=== PATIENT | male | born 1935 | race Caucasian/White ===

== ENCOUNTER 2018-03-20 12:28 | Inpatient (IN) ==
[2018-03-20] MEDS ORDERED: 0.9 % Sodium Chloride 1,000 ML IVC ONE (12:35)
[2018-03-20] MEDS ORDERED: Pantoprazole 40 MG VIAL IVP ONE (12:35)
--- NOTE | 2018-03-20 12:38 | Emergency Department Note ---
Disposition Clinical Impression: GI bleed Qualifiers: GI bleed type/associated pathology: unspecified gastrointestinal hemorrhage type Qualified Code(s): K92.2 - Gastrointestinal hemorrhage, unspecified Hematemesis Qualifiers: Nausea presence: unspecified Qualified Code(s): K92.0 - Hematemesis Syncope Qualifiers: Syncope type: unspecified Qualified Code(s): R55 - Syncope and collapse Disposition: Admitted As Inpatient Condition: Fair General Adult HPI - General Stated complaint: syncope Time Seen by Provider: 03/20/18 12:29 - Related Data Home Medications Medication Instructions Recorded Confirmed Carvedilol Phosphate [Coreg Cr] 20 mg PO DAILY 03/20/18 03/20/18 Finasteride [Proscar] 5 mg PO DAILY 03/20/18 03/20/18 Iron 18 mg PO DAILY 03/20/18 03/20/18 Levocetirizine 5 mg PO DAILY 03/20/18 03/20/18 Lisinopril [Zestril] 40 mg PO DAILY 03/20/18 03/20/18 levoFLOXacin [Levofloxacin] 500 mg PO DAILY 03/20/18 03/20/18 metFORMIN [Glucophage] 500 mg PO BIDWM 03/20/18 03/20/18 Allergies Allergy/AdvReac Type Severity Reaction Status Date / Time No Known Allergies Allergy Verified 03/20/18 12:56 Course Vital Signs Temperature 97.6 F 03/20/18 12:56 Pulse Rate 70 03/20/18 12:56 Respiratory Rate 15 03/20/18 12:56 Blood Pressure 135/75 03/20/18 12:56 O2 Sat by Pulse Oximetry 98 03/20/18 12:56 Temperature 97.7 F 03/20/18 19:04 Pulse Rate 74 03/20/18 19:04 Respiratory Rate 16 03/20/18 19:04 Blood Pressure 175/80 03/20/18 19:04 O2 Sat by Pulse Oximetry 97 03/20/18 19:04 Oxygen Delivery Oxygen Delivery Room Air Medical Decision Making - Lab Data Result diagrams: 03/20/18 18:23 03/20/18 12:55 Lab Results 03/20/18 03/20/18 03/20/18 Range/Units 12:55 12:55 12:55 WBC 10.5 (4.3-11.1) K/mcL RBC 3.24 L (4.19-5.50) M/mcL Hgb 11.4 L (12.9-16.9) g/dL Hct 33.2 L (37.5-50.1) % MCV 102.5 H (83.0-100.0) fL MCH 35.2 H (28.0-33.3) pg MCHC 34.3 (31.6-35.5) g/dL RDW 14.9 H (11.5-14.5) % Plt Count 228 (140-400) K/mcL MPV 11.2 (9.4-12.4) fL Immature Gran % 4.5 H (0-4) % Seg Neutrophils % 58.8 % Lymphocytes % 20.2 % Monocytes % 12.1 % Eosinophils % 3.6 % Basophils % 0.8 % Neutrophils # 6.2 (1.6-8.9) K/mcL Lymphocytes # 2.1 (0.6-4.6) K/mcL Monocytes # 1.3 (0.0-1.3) K/mcL Eosinophils # 0.4 (0.0-0.6) K/mcL Basophils # 0.1 (0.0-0.2) K/mcL Nucleated RBCs/100 WBC 0.6 H (0) /100 WBC PT 13.2 H (9.4-12.1) Seconds INR 1.2 APTT 25.0 L (26.0-36.0) Seconds Sodium 134 L (136-145) mEq/L Potassium 4.5 (3.5-5.1) mEq/L Chloride 99 (98-107) mEq/L Carbon Dioxide 30 H (23-29) mEq/L BUN 29 H (8-23) mg/dL Creatinine 0.92 (0.70-1.30) mg/dL Est GFR ( Amer) > 60 (> 60) Est GFR (Non-Af Amer) > 60 (> 60) BUN/Creatinine Ratio 32 H (6-26) Glucose 228 H (70-105) mg/dL Calculated Osmolality 291 (280-300) Calcium 8.7 (8.6-10.3) mg/dL Total Bilirubin 1.3 H (0.3-1.0) mg/dL AST 17 (13-39) Units/L ALT 37 (7-52) Units/L Alkaline Phosphatase 52 (34-104) Units/L Troponin I < 0.03 (< 0.04) ng/mL Serum Total Protein 6.7 (6.4-8.9) g/dL Albumin 4.3 (3.5-5.7) g/dL Globulin 2.4 (2.4-3.5) g/dL Albumin/Globulin Ratio 1.8 (1.1-2.2) Blood Type Antibody Screen 03/20/18 Range/Units 12:55 WBC (4.3-11.1) K/mcL RBC (4.19-5.50) M/mcL Hgb (12.9-16.9) g/dL Hct (37.5-50.1) % MCV (83.0-100.0) fL MCH (28.0-33.3) pg MCHC (31.6-35.5) g/dL RDW (11.5-14.5) % Plt Count (140-400) K/mcL MPV (9.4-12.4) fL Immature Gran % (0-4) % Seg Neutrophils % % Lymphocytes % % Monocytes % % Eosinophils % % Basophils % % Neutrophils # (1.6-8.9) K/mcL Lymphocytes # (0.6-4.6) K/mcL Monocytes # (0.0-1.3) K/mcL Eosinophils # (0.0-0.6) K/mcL Basophils # (0.0-0.2) K/mcL Nucleated RBCs/100 WBC (0) /100 WBC PT (9.4-12.1) Seconds INR APTT (26.0-36.0) Seconds Sodium (136-145) mEq/L Potassium (3.5-5.1) mEq/L Chloride (98-107) mEq/L Carbon Dioxide (23-29) mEq/L BUN (8-23) mg/dL Creatinine (0.70-1.30) mg/dL Est GFR ( Amer) (> 60) Est GFR (Non-Af Amer) (> 60) BUN/Creatinine Ratio (6-26) Glucose (70-105) mg/dL Calculated Osmolality (280-300) Calcium (8.6-10.3) mg/dL Total Bilirubin (0.3-1.0) mg/dL AST (13-39) Units/L ALT (7-52) Units/L Alkaline Phosphatase (34-104) Units/L Troponin I (< 0.04) ng/mL Serum Total Protein (6.4-8.9) g/dL Albumin (3.5-5.7) g/dL Globulin (2.4-3.5) g/dL Albumin/Globulin Ratio (1.1-2.2) Blood Type A NEGATIVE Antibody Screen NEGATIVE Attestation Statement - Attestation Attestation: I examined this patient and my medical decision-making was reviewed with the Resident Physician. I agree with the documented findings, disposition and treatment plan as described except to the extent set forth below. Patient to the ED with a syncopal episode. Patient being worked up currently for GI bleeding. Scheduled for outpatient EGD colonoscopy on Friday. 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 Patient in no acute distress on examination with a soft abdomen. Plan. Cardiac workup. Protonix. Likely admission.
--- NOTE | 2018-03-20 12:45 | Emergency Department Note ---
Disposition Clinical Impression: GI bleed Qualifiers: GI bleed type/associated pathology: unspecified gastrointestinal hemorrhage type Qualified Code(s): K92.2 - Gastrointestinal hemorrhage, unspecified Hematemesis Qualifiers: Nausea presence: unspecified Qualified Code(s): K92.0 - Hematemesis Syncope Qualifiers: Syncope type: unspecified Qualified Code(s): R55 - Syncope and collapse Disposition: Admitted As Inpatient Condition: Fair Syncope HPI - General Stated Complaint: syncope Time Seen by Provider: 03/20/18 12:29 Source: patient, family, EMS Mode of arrival: EMS Limitations: no limitations - History of Present Illness HPI Narrative: Pt is an 82 year old male presenting to the ED via EMS after a syncopal episode. 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 Upon EMS arrival, blood pressure was ntoed to be 80/60 which improved to 124/80 with a 300 ml fluid bolus. Pt states that he began feeling better after the fluids. Pt additionally endorses crampy abdominal pain which improved after he vomited. He states that the abdominal pain improved after vomiting. He admits to blood in his vomit today. Additionally he endorses 3-4 weeks of black, tarry stools. His PCP has him scheduled for an EGD and colonoscopy this coming friday as he has been anemic. Admits to being nauseous and diaphoretic but no fever, chills, shortness of breath, chest pain. - Related Data Home Medications Medication Instructions Recorded Confirmed Carvedilol Phosphate [Coreg Cr] 20 mg PO DAILY 03/20/18 03/20/18 Finasteride [Proscar] 5 mg PO DAILY 03/20/18 03/20/18 Iron 18 mg PO DAILY 03/20/18 03/20/18 Levocetirizine 5 mg PO DAILY 03/20/18 03/20/18 Lisinopril [Zestril] 40 mg PO DAILY 03/20/18 03/20/18 levoFLOXacin [Levofloxacin] 500 mg PO DAILY 03/20/18 03/20/18 metFORMIN [Glucophage] 500 mg PO BIDWM 03/20/18 03/20/18 Allergies Allergy/AdvReac Type Severity Reaction Status Date / Time No Known Allergies Allergy Verified 03/20/18 12:56 All systems ED: reviewed and negative except as stated. Constitutional: Reports: weakness. Denies: fever, chills Cardiovascular: Denies: chest pain, dyspnea on exertion Respiratory: Denies: cough, dyspnea, wheezes Gastrointestinal: Reports: abdominal pain, nausea, vomiting, hematemesis Musculoskeletal: Denies: back pain Neurological: Reports: weakness Physical Exam - General Limitations: no limitations General appearance: alert, in no apparent distress - Head Head exam: atraumatic - Eye Eye exam: Absent: scleral icterus - Respiratory Respiratory exam: Absent: respiratory distress, wheezes - Cardiovascular Cardiovascular exam: Present: regular rate, normal rhythm. Absent: tachycardia - Abdominal Exam Abdominal exam: Present: soft, Non-Tender. Absent: distention, guarding, rebound - Neurological Exam Neurological exam: Present: alert, oriented X3 - Psychiatric Psychiatric exam: Present: normal affect, normal mood - Skin Skin exam: Present: warm, dry, intact, diaphoresis Course Vital Signs Temperature 97.6 F 03/20/18 12:56 Pulse Rate 70 03/20/18 12:56 Respiratory Rate 15 03/20/18 12:56 Blood Pressure 135/75 03/20/18 12:56 O2 Sat by Pulse Oximetry 98 03/20/18 12:56 Temperature 97.8 F 03/20/18 16:56 Pulse Rate 71 03/20/18 16:56 Respiratory Rate 16 03/20/18 16:56 Blood Pressure 153/90 03/20/18 16:56 O2 Sat by Pulse Oximetry 98 03/20/18 16:56 Oxygen Delivery Oxygen Delivery Room Air Syncope - Lab Data Result diagrams: 03/20/18 12:55 03/20/18 12:55 Lab Results 03/20/18 03/20/18 03/20/18 Range/Units 12:55 12:55 12:55 WBC 10.5 (4.3-11.1) K/mcL RBC 3.24 L (4.19-5.50) M/mcL Hgb 11.4 L (12.9-16.9) g/dL Hct 33.2 L (37.5-50.1) % MCV 102.5 H (83.0-100.0) fL MCH 35.2 H (28.0-33.3) pg MCHC 34.3 (31.6-35.5) g/dL RDW 14.9 H (11.5-14.5) % Plt Count 228 (140-400) K/mcL MPV 11.2 (9.4-12.4) fL Immature Gran % 4.5 H (0-4) % Seg Neutrophils % 58.8 % Lymphocytes % 20.2 % Monocytes % 12.1 % Eosinophils % 3.6 % Basophils % 0.8 % Neutrophils # 6.2 (1.6-8.9) K/mcL Lymphocytes # 2.1 (0.6-4.6) K/mcL Monocytes # 1.3 (0.0-1.3) K/mcL Eosinophils # 0.4 (0.0-0.6) K/mcL Basophils # 0.1 (0.0-0.2) K/mcL Nucleated RBCs/100 WBC 0.6 H (0) /100 WBC PT 13.2 H (9.4-12.1) Seconds INR 1.2 APTT 25.0 L (26.0-36.0) Seconds Sodium 134 L (136-145) mEq/L Potassium 4.5 (3.5-5.1) mEq/L Chloride 99 (98-107) mEq/L Carbon Dioxide 30 H (23-29) mEq/L BUN 29 H (8-23) mg/dL Creatinine 0.92 (0.70-1.30) mg/dL Est GFR ( Amer) > 60 (> 60) Est GFR (Non-Af Amer) > 60 (> 60) BUN/Creatinine Ratio 32 H (6-26) Glucose 228 H (70-105) mg/dL Calculated Osmolality 291 (280-300) Calcium 8.7 (8.6-10.3) mg/dL Total Bilirubin 1.3 H (0.3-1.0) mg/dL AST 17 (13-39) Units/L ALT 37 (7-52) Units/L Alkaline Phosphatase 52 (34-104) Units/L Troponin I < 0.03 (< 0.04) ng/mL Serum Total Protein 6.7 (6.4-8.9) g/dL Albumin 4.3 (3.5-5.7) g/dL Globulin 2.4 (2.4-3.5) g/dL Albumin/Globulin Ratio 1.8 (1.1-2.2) Blood Type Antibody Screen 03/20/18 Range/Units 12:55 WBC (4.3-11.1) K/mcL RBC (4.19-5.50) M/mcL Hgb (12.9-16.9) g/dL Hct (37.5-50.1) % MCV (83.0-100.0) fL MCH (28.0-33.3) pg MCHC (31.6-35.5) g/dL RDW (11.5-14.5) % Plt Count (140-400) K/mcL MPV (9.4-12.4) fL Immature Gran % (0-4) % Seg Neutrophils % % Lymphocytes % % Monocytes % % Eosinophils % % Basophils % % Neutrophils # (1.6-8.9) K/mcL Lymphocytes # (0.6-4.6) K/mcL Monocytes # (0.0-1.3) K/mcL Eosinophils # (0.0-0.6) K/mcL Basophils # (0.0-0.2) K/mcL Nucleated RBCs/100 WBC (0) /100 WBC PT (9.4-12.1) Seconds INR APTT (26.0-36.0) Seconds Sodium (136-145) mEq/L Potassium (3.5-5.1) mEq/L Chloride (98-107) mEq/L Carbon Dioxide (23-29) mEq/L BUN (8-23) mg/dL Creatinine (0.70-1.30) mg/dL Est GFR ( Amer) (> 60) Est GFR (Non-Af Amer) (> 60) BUN/Creatinine Ratio (6-26) Glucose (70-105) mg/dL Calculated Osmolality (280-300) Calcium (8.6-10.3) mg/dL Total Bilirubin (0.3-1.0) mg/dL AST (13-39) Units/L ALT (7-52) Units/L Alkaline Phosphatase (34-104) Units/L Troponin I (< 0.04) ng/mL Serum Total Protein (6.4-8.9) g/dL Albumin (3.5-5.7) g/dL Globulin (2.4-3.5) g/dL Albumin/Globulin Ratio (1.1-2.2) Blood Type A NEGATIVE Antibody Screen NEGATIVE
[2018-03-20 13:17] LABS: Basophils # 0.1 K/mcL (0.0-0.2); Basophils % 0.8 %; Eosinophils # 0.4 K/mcL (0.0-0.6); Eosinophils % 3.6 %; Hematocrit 33.2 % (37.5-50.1); Hemoglobin 11.4 g/dL (12.9-16.9); Immature Granulocytes % 4.5 % (0-4); Lymphocytes # 2.1 K/mcL (0.6-4.6); Lymphocytes % 20.2 %; Mean Corpuscular HGB Conc 34.3 g/dL (31.6-35.5); Mean Corpuscular Hemoglobin 35.2 pg (28.0-33.3); Mean Corpuscular Volume 102.5 fL (83.0-100.0); Mean Platelet Volume 11.2 fL (9.4-12.4); Monocytes # 1.3 K/mcL (0.0-1.3); Monocytes % 12.1 %; Neutrophils # 6.2 K/mcL (1.6-8.9); Nucleated Red Blood Cells 0.6 /100 WBC (0); Platelet Count 228 K/mcL (140-400); Red Blood Count 3.24 M/mcL (4.19-5.50); Red Cell Distribution Width 14.9 % (11.5-14.5); Segmented Neutrophils % 58.8 %
[2018-03-20 13:25] LABS: INR 1.2; Prothrombin Time 13.2 Seconds (9.4-12.1)
--- NOTE | 2018-03-20 13:38 | Emergency Department Note ---
Disposition Clinical Impression: GI bleed Qualifiers: GI bleed type/associated pathology: unspecified gastrointestinal hemorrhage type Qualified Code(s): K92.2 - Gastrointestinal hemorrhage, unspecified Hematemesis Qualifiers: Nausea presence: unspecified Qualified Code(s): K92.0 - Hematemesis Syncope Qualifiers: Syncope type: unspecified Qualified Code(s): R55 - Syncope and collapse Disposition: Admitted As Inpatient Condition: Fair Time of Disposition: 15:27 Syncope HPI - General Chief Complaint: ED Syncope Stated Complaint: syncope Time Seen by Provider: 03/20/18 12:29 Source: patient, family, EMS Mode of arrival: EMS Limitations: no limitations - Related Data Home Medications Medication Instructions Recorded Confirmed Carvedilol Phosphate [Coreg Cr] 20 mg PO DAILY 03/20/18 03/20/18 Finasteride [Proscar] 5 mg PO DAILY 03/20/18 03/20/18 Iron 18 mg PO DAILY 03/20/18 03/20/18 Levocetirizine 5 mg PO DAILY 03/20/18 03/20/18 Lisinopril [Zestril] 40 mg PO DAILY 03/20/18 03/20/18 levoFLOXacin [Levofloxacin] 500 mg PO DAILY 03/20/18 03/20/18 metFORMIN [Glucophage] 500 mg PO BIDWM 03/20/18 03/20/18 Allergies Allergy/AdvReac Type Severity Reaction Status Date / Time No Known Allergies Allergy Verified 03/20/18 12:56 Constitutional: Reports: weakness. Denies: fever, chills Cardiovascular: Denies: chest pain, dyspnea on exertion Respiratory: Denies: cough, dyspnea, wheezes Gastrointestinal: Reports: abdominal pain, nausea, vomiting, hematemesis Musculoskeletal: Denies: back pain Neurological: Reports: weakness Past Medical History - Past Medical History Medical history: Reports: diabetes, hyperlipidemia, hypertension Psychiatric history: Reports: no psych history - Social History Smoking Status: Never smoker Smokeless Tobacco Status: No Alcohol use: Reports: none Drug use: Reports: none Physical Exam - General Limitations: no limitations General appearance: alert, in no apparent distress Course Course Narrative: I have personally seen and evaluated the patient along with the Medical Student. I have reviewed and confirmed the history of present illness, review of systems, family, medical, and surgical history and agree with the documentation except as documented below. HPI/ROS: Briefly, patient presenting with a syncopal episode, suspected from upper GI bleed. Is supposed to be scoped in 3 days for a month long history of epigastric burning and melena. Hypotensive initially, but normotensive upon arrival. After fluid bolus. Still complaining of some epigastric pain. Emesis basin clearly bloody. Physical exam: CONSTITUTIONAL: [well appearing in no acute distress] SKIN: [Warm, dry, slightly pale and intact without rash] EYES: [extraocular movements are grossly intact, clear conjunctiva] HENT: [Normocephalic, atraumatic, moist mucus membranes] NECK: [no obvious swelling, normal range of motion] PULMONARY: [normal chest rise and fall, no respiratory distress or stridor CARDIOVASCULAR: [regular rate, distal extremities are warm and well perfused] GASTROINSTESTINAL: [nondistended, mildly tender in the epigastrium, no guarding or rebound] GENITOURINARY: [deferred] NEUROLOGIC: [normal speech, moves all extremities] MUSCULOSKELETAL: [no gross deformities, atraumatic] PSYCHIATRIC: [normal mood and affect] Plan: Workup and admit for GI bleed. If any further episodes of hematemesis. Labs look okay. Vitals are maintain stable. Admitted to the hospitalist service. However, he requested surgical consult. Spoke with the circulating nurse in the OR and Dr. Bocanegra requested we put the patient on his list and he will see him. Vital Signs Temperature 97.6 F 03/20/18 12:56 Pulse Rate 70 03/20/18 12:56 Respiratory Rate 15 03/20/18 12:56 Blood Pressure 135/75 03/20/18 12:56 O2 Sat by Pulse Oximetry 98 03/20/18 12:56 Temperature 97.6 F 03/20/18 12:56 Pulse Rate 70 03/20/18 14:34 Respiratory Rate 16 03/20/18 14:34 Blood Pressure 123/70 03/20/18 14:34 O2 Sat by Pulse Oximetry 97 03/20/18 14:34 Oxygen Delivery Oxygen Delivery Room Air Syncope - Medical Records Medical records reviewed: Yes I reviewed the patient's medical records. - Lab Data Lab results reviewed: Yes I reviewed the patient's lab results. Result diagrams: 03/20/18 12:55 03/20/18 12:55 Lab Results 03/20/18 03/20/18 03/20/18 Range/Units 12:55 12:55 12:55 WBC 10.5 (4.3-11.1) K/mcL RBC 3.24 L (4.19-5.50) M/mcL Hgb 11.4 L (12.9-16.9) g/dL Hct 33.2 L (37.5-50.1) % MCV 102.5 H (83.0-100.0) fL MCH 35.2 H (28.0-33.3) pg MCHC 34.3 (31.6-35.5) g/dL RDW 14.9 H (11.5-14.5) % Plt Count 228 (140-400) K/mcL MPV 11.2 (9.4-12.4) fL Immature Gran % 4.5 H (0-4) % Seg Neutrophils % 58.8 % Lymphocytes % 20.2 % Monocytes % 12.1 % Eosinophils % 3.6 % Basophils % 0.8 % Neutrophils # 6.2 (1.6-8.9) K/mcL Lymphocytes # 2.1 (0.6-4.6) K/mcL Monocytes # 1.3 (0.0-1.3) K/mcL Eosinophils # 0.4 (0.0-0.6) K/mcL Basophils # 0.1 (0.0-0.2) K/mcL Nucleated RBCs/100 WBC 0.6 H (0) /100 WBC PT 13.2 H (9.4-12.1) Seconds INR 1.2 APTT 25.0 L (26.0-36.0) Seconds Sodium 134 L (136-145) mEq/L Potassium 4.5 (3.5-5.1) mEq/L Chloride 99 (98-107) mEq/L Carbon Dioxide 30 H (23-29) mEq/L BUN 29 H (8-23) mg/dL Creatinine 0.92 (0.70-1.30) mg/dL Est GFR ( Amer) > 60 (> 60) Est GFR (Non-Af Amer) > 60 (> 60) BUN/Creatinine Ratio 32 H (6-26) Glucose 228 H (70-105) mg/dL Calculated Osmolality 291 (280-300) Calcium 8.7 (8.6-10.3) mg/dL Total Bilirubin 1.3 H (0.3-1.0) mg/dL AST 17 (13-39) Units/L ALT 37 (7-52) Units/L Alkaline Phosphatase 52 (34-104) Units/L Troponin I < 0.03 (< 0.04) ng/mL Serum Total Protein 6.7 (6.4-8.9) g/dL Albumin 4.3 (3.5-5.7) g/dL Globulin 2.4 (2.4-3.5) g/dL Albumin/Globulin Ratio 1.8 (1.1-2.2) Blood Type Antibody Screen 03/20/18 Range/Units 12:55 WBC (4.3-11.1) K/mcL RBC (4.19-5.50) M/mcL Hgb (12.9-16.9) g/dL Hct (37.5-50.1) % MCV (83.0-100.0) fL MCH (28.0-33.3) pg MCHC (31.6-35.5) g/dL RDW (11.5-14.5) % Plt Count (140-400) K/mcL MPV (9.4-12.4) fL Immature Gran % (0-4) % Seg Neutrophils % % Lymphocytes % % Monocytes % % Eosinophils % % Basophils % % Neutrophils # (1.6-8.9) K/mcL Lymphocytes # (0.6-4.6) K/mcL Monocytes # (0.0-1.3) K/mcL Eosinophils # (0.0-0.6) K/mcL Basophils # (0.0-0.2) K/mcL Nucleated RBCs/100 WBC (0) /100 WBC PT (9.4-12.1) Seconds INR APTT (26.0-36.0) Seconds Sodium (136-145) mEq/L Potassium (3.5-5.1) mEq/L Chloride (98-107) mEq/L Carbon Dioxide (23-29) mEq/L BUN (8-23) mg/dL Creatinine (0.70-1.30) mg/dL Est GFR ( Amer) (> 60) Est GFR (Non-Af Amer) (> 60) BUN/Creatinine Ratio (6-26) Glucose (70-105) mg/dL Calculated Osmolality (280-300) Calcium (8.6-10.3) mg/dL Total Bilirubin (0.3-1.0) mg/dL AST (13-39) Units/L ALT (7-52) Units/L Alkaline Phosphatase (34-104) Units/L Troponin I (< 0.04) ng/mL Serum Total Protein (6.4-8.9) g/dL Albumin (3.5-5.7) g/dL Globulin (2.4-3.5) g/dL Albumin/Globulin Ratio (1.1-2.2) Blood Type A NEGATIVE Antibody Screen NEGATIVE - Radiology Data Radiology results reviewed: Yes I reviewed the patient's radiology results. - EKG Data EKG attestation: Yes I reviewed and interpreted this EKG. EKG results narrative: Normal sinus rhythm, rate 69, normal intervals, normal axis, no acute ischemic changes
[2018-03-20 15:00] LABS: Alanine Aminotransferase 37 Units/L (7-52); Albumin 4.3 g/dL (3.5-5.7); Albumin/Globulin Ratio 1.8 (1.1-2.2); Alkaline Phosphatase 52 Units/L (34-104); Aspartate Amino Transferase 17 Units/L (13-39); BUN/Creatinine Ratio 32 (6-26); Bilirubin,Total 1.3 mg/dL (0.3-1.0); Blood Urea Nitrogen 29 mg/dL (8-23); Calcium 8.7 mg/dL (8.6-10.3); Carbon Dioxide 30 mEq/L (23-29); Chloride 99 mEq/L (98-107); Globulin 2.4 g/dL (2.4-3.5); Glucose 228 mg/dL (70-105); Osmolality,Calculated 291 (280-300); Potassium 4.5 mEq/L (3.5-5.1); Sodium 134 mEq/L (136-145); Total Protein 6.7 g/dL (6.4-8.9); Troponin I < 0.03 ng/mL (< 0.04); eGFR For Non-African Americans > 60 (> 60)
[2018-03-20] MEDS ORDERED: *HR* HYDROcodone/Acet 5/325 mg TABLET PO PRN (16:54)
[2018-03-20] MEDS ORDERED: Acetaminophen 325 MG TABLET PO PRN (16:54)
[2018-03-20] MEDS ORDERED: Naloxone 0.4 MG/ML INJ IVP PRN (16:54)
--- NOTE | 2018-03-20 16:54 | Internal Med History&Physical ---
<Pina Doherty - Last Filed: 03/20/18 17:36> Date of Encounter: 03/20/18 Time of Encounter: 16:54 Internal Medicine - H&P: HPI Chief complaint: syncope, hematemesis Admitted From: Emergency Dept Plans for Post Hospital Care: Home History of present illness: Mr. Field is a 82 year old male with hx HTN, DM, and BPH who presented to ER with hematemesis and syncope. He was at when he felt dizzy and sat down then lost consciousness - he has little memory of the event but family reports he leaned forward, he did not fall and he did not hit his head. He was not exerting himself. While in transport to hospital he had one episode of hematemsis approximately one measuring cup full. He continues to complain of nausea and vague abdominal pain. He was seen by his PCP for 3 weeks of melena and fatigue. A colonoscopy was scheduled for Friday. His last colonoscopy was about 14-15 years ago; normal. He reports dark stools with loose BM every 2-3 days - with out pain. Denies anything like this occuring before 3 weeks ago- no history of GI bleed. He denies diarrhea, shortness of breath, chest pain, palpations, fever, or chills. He admits to cough with chest congestion onset last week for which his PCP start Levaquin and he has improved- he had 2 pills left to complete script. He denies chronic use of NSAIDs. He is never smoker. He has no known family history of colon cancer. Past Med Surg Social Fam HX - Past Medical History Source: patient Medical history: diabetes, hypertension Psychiatric history: no psych history - Past Surgical History Surgical History: cholecystectomy Additional surgical history: hernia repair, right sided - Social History Smoking Status: Never smoker Smokeless Tobacco Status: No Alcohol use: none Drug use: none - Family History Daughter History Unknown: Yes (DM) Internal Medicine - H&P: Meds Carvedilol Phosphate [Coreg Cr] 20 mg PO DAILY 03/20/18 [History] Finasteride [Proscar] 5 mg PO DAILY 03/20/18 [History] Iron 18 mg PO DAILY 03/20/18 [History] Levocetirizine 5 mg PO DAILY 03/20/18 [History] Lisinopril [Zestril] 40 mg PO DAILY 03/20/18 [History] levoFLOXacin [Levofloxacin] 500 mg PO DAILY 03/20/18 [History] metFORMIN [Glucophage] 500 mg PO BIDWM 03/20/18 [History] 3 Allergy/AdvReac Type Severity Reaction Status Date / Time No Known Allergies Allergy Verified 03/20/18 12:56 All Systems PM: A 10-system review of systems was performed and is negative for pertinent findings except as documented above in the HPI. Review of systems: as per HPI - Constitutional Vitals: Temp Pulse Resp BP Pulse Ox 97.6 F 71 16 118/71 98 03/20/18 12:56 03/20/18 15:36 03/20/18 15:36 03/20/18 15:36 03/20/18 15:36 General appearance: Present: A&O X 3, pleasant, no acute distress, obese Exam: exam completed with family by bedside - Head Head exam: Present: atraumatic, normocephalic - ENT ENT exam: Present: mucous membranes moist, normal oropharynx - Respiratory Respiratory exam: Present: wheezes. Absent: accessory muscle use, respiratory distress, stridor, tachypnea Additional comments: mild diffuse wheeze - Cardiovascular Cardiovascular exam: Present: RRR. Absent: gallop, rubs - GI/Abdominal GI/Abdominal exam: Present: distended, normal bowel sounds. Absent: hepatomegaly, mass, rebound, tenderness - Extremities Exam Extremities exam: Present: full ROM, warm, radial pulses palpable and symmetrical. Absent: pedal edema, tenderness - Psychiatric Psychiatric exam: Present: normal affect, normal mood Internal Med - H&P Results - Labs CBC & Chem 7: 03/20/18 12:55 03/20/18 12:55 - Assessment and plan (1) GI bleed Current Visit: Yes Status: Acute Assessment and plan: suspecting both upper and lower source of bleed - ED already consulted Surgery - keep NPO - serial H&H q6h : HgB 11.4 - continue Protonix drip - zofran PRN Qualifiers: GI bleed type/associated pathology: unspecified gastrointestinal hemorrhage type Qualified Code(s): K92.2 - Gastrointestinal hemorrhage, unspecified (2) Syncope Current Visit: Yes Status: Acute Assessment and plan: possibly due to blood blood - continue telemetry - EKG in ED NSR Qualifiers: Syncope type: unspecified Qualified Code(s): R55 - Syncope and collapse (3) Diabetes mellitus Current Visit: Yes Status: Acute Assessment and plan: continue Metformin home dose Qualifiers: Diabetes mellitus type: type 2 Diabetes mellitus exterminator insulin use: without exterminator use Diabetes mellitus complication status: without complication Qualified Code(s): E11.9 - Type 2 diabetes mellitus without complications (4) HTN (hypertension) Current Visit: Yes Status: Acute Assessment and plan: hypotension in ED - continue coreg - hold linsoril Qualifiers: Qualified Code(s): I10 - Essential (primary) hypertension (5) DVT prophylaxis Current Visit: Yes Status: Acute Assessment and plan: ambulation - Time Spent With Patient Total time spent is greater than 50% in coordination of care (as documented) at patient's floor/unit and/or counseling patient: Greater than 35 minutes <Rich Maldonado - Last Filed: 03/20/18 18:51> Date of Encounter: 03/20/18 Internal Medicine - H&P: HPI History of present illness: Mr. Field is a 82 year old male All Systems PM: A 10-system review of systems was performed and is negative for pertinent findings except as documented above in the HPI. - Constitutional Vitals: Temp Pulse Resp BP Pulse Ox 97.8 F 71 16 153/90 98 03/20/18 16:56 03/20/18 16:56 03/20/18 16:56 03/20/18 16:56 03/20/18 16:56 Internal Med - H&P Results - Labs CBC & Chem 7: 03/20/18 18:23 03/20/18 12:55 Labs: Short CBC 03/20/18 Range/Units 18:23 Hgb 11.4 L (12.9-16.9) g/dL Hct 32.8 L (37.5-50.1) % - Time Spent With Patient Total time spent is greater than 50% in coordination of care (as documented) at patient's floor/unit and/or counseling patient: - Attending Attestation I examined this patient and my medical decision-making was reviewed with the Resident Physician Dr. Doherty. I agree with the documented findings, disposition and treatment plan as described except to the extent set forth below. Mr. Field is a 82 year old male with hx HTN, DM, and BPH who presented to ER with hematemesis and syncope. He did have a week h/o melena, supposedly has to go for EGD and Colonoscopy on Friday by Dr. Bocanegra as an out pt. He denied any CP. Gen: A, A, O x 3 Chest: Diminished BS Heart: S1S2+ RRR No murmurs Abd; Soft, NT a/p 1. Acute GI bleed - Melena / Hematemesis mostly upper GI bleed on PPI gtt NPO IV hydration Surgery consulted possible EGD in AM 2. Syncope due to orthostatic IV hydration on tele
[2018-03-20 18:47] LABS: Hematocrit 32.8 % (37.5-50.1); Hemoglobin 11.4 g/dL (12.9-16.9)
[2018-03-20] MEDS: Pantoprazole 40 MG in 0.9 % Sodium Chloride Mini Bag 100 ML IVC SCH (19:04)
[2018-03-20] MEDS: 0.9 % Sodium Chloride 1,000 ML IVC SCH (19:04)
[2018-03-20] MEDS: Ondansetron 4 MG/2 ML VIAL IVP PRN (19:04)
[2018-03-20] MEDS ORDERED: D5% in Water 1,000 ML IVC PRN (19:06)
[2018-03-20] MEDS ORDERED: *HR* Dextrose 50 % in Water (Syg) 50 ML SYRINGE IVP PRN (19:06)
[2018-03-20] MEDS ORDERED: Dextrose Gel 15 GM/37.5 ML TUBE PO PRN ×2 (19:06)
[2018-03-20] MEDS ORDERED: Insulin LISPRO 300 UNITS/3 ML VIAL SQ SCH (21:00)
[2018-03-21] MEDS: Pantoprazole 40 MG in 0.9 % Sodium Chloride Mini Bag 100 ML IVC SCH ×4 (00:08→15:49)
[2018-03-21] MEDS: Insulin LISPRO 300 UNITS/3 ML VIAL SQ SCH ×4 (00:27→17:01)
[2018-03-21 01:00] LABS: Hemoglobin 10.8 g/dL (12.9-16.9)
[2018-03-21] MEDS: 0.9 % Sodium Chloride 1,000 ML IVC SCH (03:18)
[2018-03-21 06:13] LABS: Basophils % 0.3 %; Eosinophils # 0.3 K/mcL (0.0-0.6); Eosinophils % 3.5 %; Hematocrit 29.4 % (37.5-50.1); Immature Granulocytes % 2.9 % (0-4); Lymphocytes # 2.1 K/mcL (0.6-4.6); Lymphocytes % 28.3 %; Mean Corpuscular Hemoglobin 34.8 pg (28.0-33.3); Mean Corpuscular Volume 102.4 fL (83.0-100.0); Mean Platelet Volume 11.1 fL (9.4-12.4); Monocytes # 0.8 K/mcL (0.0-1.3); Monocytes % 11.5 %; Neutrophils # 3.9 K/mcL (1.6-8.9); Nucleated Red Blood Cells 0.4 /100 WBC (0); Platelet Count 181 K/mcL (140-400); Red Blood Count 2.87 M/mcL (4.19-5.50); Red Cell Distribution Width 15.1 % (11.5-14.5); Segmented Neutrophils % 53.5 %
[2018-03-21 06:37] LABS: BUN/Creatinine Ratio 28 (6-26); Blood Urea Nitrogen 22 mg/dL (8-23); Calcium 7.9 mg/dL (8.6-10.3); Carbon Dioxide 26 mEq/L (23-29); Chloride 104 mEq/L (98-107); Glucose 146 mg/dL (70-105); Magnesium 2.4 mg/dL (1.6-2.6); Osmolality,Calculated 286 (280-300); Potassium 4.3 mEq/L (3.5-5.1); Sodium 135 mEq/L (136-145); eGFR For Non-African Americans > 60 (> 60)
[2018-03-21] MEDS ORDERED: Insulin LISPRO 300 UNITS/3 ML VIAL SQ SCH (07:30)
[2018-03-21] MEDS ORDERED: *HR* Metformin 500 MG TABLET PO SCH (08:00)
[2018-03-21] MEDS ORDERED: IRON 18 MG PO SCH (09:00)
[2018-03-21] MEDS ORDERED: (Levocetirizine 5 MG) PO SCH (09:00)
[2018-03-21] MEDS ORDERED: Finasteride 5 MG TABLET PO SCH (09:00)
--- NOTE | 2018-03-21 10:48 | Internal Med Progress Note ---
<Anthony Finch Lizandro - Last Filed: 03/21/18 12:37> Hospitalist Progress Note - Encounter Date of Encounter: 03/21/18 Time of Encounter: 10:46 - Subjective Interval History: Patient here with syncope, hematemesis, GI bleed. Seen and examined at bedside. He reports that today he is feeling well. Still reporting some nausea. He has not had any further further vomiting, hematemesis, dizziness, or syncope. Still having melenotic stools. he denies other symptoms, denies fevers, chills, chest pain, dyspnea, or dysuria. - Exam Vitals: Temp Pulse Resp BP Pulse Ox 97.7 F 70 16 174/82 98 03/21/18 07:35 03/21/18 07:35 03/21/18 07:35 03/21/18 07:35 03/21/18 08:25 Exam: GEN: No acute distress, A&O3 HEAD: Atraumatic, normocephalic EYES: Pupils symmetric, sclera white, conjunctiva pink HEART: RRR, normal S1 and S2, no murmurs LUNGS: Clear to auscultation bilaterally, no wheezes, rhonchi, or crackles ABD: Soft, nontender, nondistended, bowel sounds present EXT: No edema noted, pulses 2/4 NEURO: No focal deficits, cooperative with exam - Assessment and Plan (1) GI bleed Current Visit: Yes Status: Acute Assessment and Plan: Patient currently nothing by mouth awaiting surgical evaluation for likely EGD today Mild decrease in hemoglobin: Initially 11.4, now 10.0 - continue to monitor Continue protonix drip and zofran (2) Syncope Current Visit: Yes Status: Acute Assessment and Plan: Likely secondary to blood loss, complicated by hot weather and possible dehydration Continue telemetry No additional workup at this time until further evaluation with EGD (3) Diabetes mellitus Current Visit: Yes Status: Acute Assessment and Plan: Hold metformin. Low-dose sliding scale insulin, especially while NPO (4) HTN (hypertension) Current Visit: Yes Status: Acute Assessment and Plan: BP elevated this morning - Resume home Coreg Add PRN metoprolol DVT Prophylaxis: EPCDs - Summary of Assessment and Plan Summary of Assessment and Plan: Patient currently nothing by mouth, awaiting possible EGD for surgery. Symptoms improving. - Time Spent with Patient Total time spent is greater than 50% in coordination of care (as documented) at patient's floor/unit and/or counseling patient: Internal Medicine: Result - Labs CBC & Chem 7: 03/21/18 05:54 03/21/18 05:54 Labs: Short CBC 03/21/18 03/21/18 Range/Units 00:39 05:54 WBC 7.2 (4.3-11.1) K/mcL Hgb 10.8 L 10.0 L (12.9-16.9) g/dL Hct 31.0 L 29.4 L (37.5-50.1) % Plt Count 181 (140-400) K/mcL Neutrophils # 3.9 (1.6-8.9) K/mcL BMP 03/21/18 05:54 Sodium 135 L Potassium 4.3 Chloride 104 Carbon Dioxide 26 BUN 22 Creatinine 0.79 Glucose 146 H Calcium 7.9 L - ABG Interpretation ABG results: PT/INR, D-dimer PT 13.2 Seconds (9.4-12.1) H 03/20/18 12:55 Consult Discharge Plan - Plan Referrals: Alexis Warren MD [Primary Care Provider] - <Rich Maldonado - Last Filed: 03/21/18 15:02> Hospitalist Progress Note - Encounter Date of Encounter: 03/21/18 - Exam Vitals: Temp Pulse Resp BP Pulse Ox 97.9 F 69 16 132/79 93 03/21/18 14:32 03/21/18 14:32 03/21/18 14:32 03/21/18 14:32 03/21/18 14:32 - Time Spent with Patient Total time spent is greater than 50% in coordination of care (as documented) at patient's floor/unit and/or counseling patient: Internal Medicine: Result - Labs CBC & Chem 7: 03/21/18 05:54 03/21/18 05:54 Labs: Short CBC 03/21/18 03/21/18 Range/Units 00:39 05:54 WBC 7.2 (4.3-11.1) K/mcL Hgb 10.8 L 10.0 L (12.9-16.9) g/dL Hct 31.0 L 29.4 L (37.5-50.1) % Plt Count 181 (140-400) K/mcL Neutrophils # 3.9 (1.6-8.9) K/mcL BMP 03/21/18 05:54 Sodium 135 L Potassium 4.3 Chloride 104 Carbon Dioxide 26 BUN 22 Creatinine 0.79 Glucose 146 H Calcium 7.9 L - ABG Interpretation ABG results: PT/INR, D-dimer PT 13.2 Seconds (9.4-12.1) H 03/20/18 12:55 - Attending Attestation I examined this patient and my medical decision-making was reviewed with the Resident Physician Dr. Finch. I agree with the documented findings, disposition and treatment plan as described except to the extent set forth below. Mr. Field is a 82 year old male with hx HTN, DM, and BPH who presented to ER with hematemesis and syncope. He did have a week h/o melena, supposedly has to go for EGD and Colonoscopy on Friday by Dr. Bocanegra as an out pt. He denied any CP. Denied any more hematemesis / melena Gen: A, A, O x 3 Chest: Diminished BS Heart: S1S2+ RRR No murmurs Abd; Soft, NT a/p 1. Acute GI bleed - Melena / Hematemesis mostly upper GI bleed Hb stable @ 10.0 con PPI gtt NPO Scheduled for EGD today IV hydration Surgery consulted 2. Syncope due to orthostatic IV hydration on tele <Anthony Finch - Last Filed: 03/21/18 12:37> (1) GI bleed Qualifiers: GI bleed type/associated pathology: unspecified gastrointestinal hemorrhage type Qualified Code(s): K92.2 - Gastrointestinal hemorrhage, unspecified (2) Syncope Qualifiers: Syncope type: unspecified Qualified Code(s): R55 - Syncope and collapse (3) Diabetes mellitus Qualifiers: Diabetes mellitus type: type 2 Diabetes mellitus moth exterminator insulin use: without care home use Diabetes mellitus complication status: without complication Qualified Code(s): E11.9 - Type 2 diabetes mellitus without complications (4) HTN (hypertension) Qualifiers: Hypertension type: essential hypertension Qualified Code(s): I10 - Essential (primary) hypertension
[2018-03-21] MEDS ORDERED: *HR* Metoprolol 5 MG/5 ML VIAL IVP PRN ×2 (10:57→11:16)
[2018-03-21] MEDS: Ondansetron 4 MG/2 ML VIAL IVP PRN (11:36)
[2018-03-21] MEDS ORDERED: 0.9 % Sodium Chloride 1,000 ML IVC SCH (11:45)
[2018-03-21] MEDS ORDERED: *HR* FentaNYL (PF) 100 MCG/2 ML VIAL ONE (13:17)
[2018-03-21] MEDS ORDERED: *HR* Midazolam HCl 5 MG/5 ML VIAL IVP ONE ×2 (13:17→13:55)
[2018-03-21] MEDS ORDERED: Simethicone 40 MG/0.6 ML MLS IR ONE ×2 (13:47→13:55)
[2018-03-21] MEDS ORDERED: Tetracaine/Benzocaine/Butamben 200MG/SPRAY (100SPY/BOT) MM ONE ×2 (13:47→13:55)
[2018-03-21] MEDS ORDERED: *HR* FentaNYL (PF) 100 MCG/2 ML VIAL IVP ONE ×2 (13:47→13:55)
[2018-03-21] MEDS ORDERED: *HR* Meperidine 50 MG/ML SYRINGE IVP ONE (13:47)
[2018-03-21 15:01] VITALS: BP 125/74
--- NOTE | 2018-03-21 17:30 | Discharge Summary ---
- NOTES TO OUTPATIENT PROVIDER Notes to Outpatient Provider: f/u with Dr. Wang in one week for colonoscopy. f/u with GI Dr. Patel for endo capsular study in 1-2 weeks Orders not resulted at time of discharge: Pending orders 03/21/18 13:50 H. pylori Urease Culture [RM] Stat 03/22/18 04:00 BMP [Basic Metabolic Panel] AM 0400 Complete Blood Count [HEME] AM 0400 03/23/18 04:00 BMP [Basic Metabolic Panel] AM 0400 Complete Blood Count [HEME] AM 0400 Date of Encounter: 03/21/18 Time of Encounter: 17:26 - Discharge Diagnosis (1) Syncope Priority: Primary Status: Acute Qualifiers: Syncope type: unspecified Qualified Code(s): R55 - Syncope and collapse (2) Hematemesis Priority: Primary Status: Acute Qualifiers: Nausea presence: unspecified Qualified Code(s): K92.0 - Hematemesis (3) GI bleed Priority: Primary Status: Acute Qualifiers: GI bleed type/associated pathology: unspecified gastrointestinal hemorrhage type Qualified Code(s): K92.2 - Gastrointestinal hemorrhage, unspecified (4) Diabetes mellitus Priority: Secondary Status: Acute Qualifiers: Diabetes mellitus type: type 2 Diabetes mellitus custodial insulin use: without computer terminal operator use Diabetes mellitus complication status: without complication Qualified Code(s): E11.9 - Type 2 diabetes mellitus without complications (5) HTN (hypertension) Priority: Secondary Status: Acute Qualifiers: Hypertension type: essential hypertension Qualified Code(s): I10 - Essential (primary) hypertension Hospital course: Mr. Field is a 82 year old male with hx HTN, DM, and BPH who presented to ER with hematemesis and syncope. He did have a week h/o melena, supposedly has to go for EGD and Colonoscopy on Friday by Dr. Bocanegra as an out pt. He denied any CP. He was admitted in the hospital and placed him on tele. His Hb stayed stable @ 10.0. He denied any more hematemesis / melena. He was evaluated by surgery Dr. Bocanegra who did EGD today and everything came back negative. He recommend out pt colonoscopy next week, and out pt endo capsular study through GI. So navin d/c him home with PO PPI. - Time Spent with Patient Total time spent providing and/or coordinating discharge services: - Discharge Medications Prescriptions: Omeprazole [PriLOSEC] 20 mg PO BIDAC #60 cap Home Medications: Carvedilol Phosphate [Coreg Cr] 20 mg PO DAILY 03/20/18 [History] Finasteride [Proscar] 5 mg PO DAILY 03/20/18 [History] Iron 18 mg PO DAILY 03/20/18 [History] Levocetirizine 5 mg PO DAILY 03/20/18 [History] Lisinopril [Zestril] 40 mg PO DAILY 03/20/18 [History] levoFLOXacin [Levofloxacin] 500 mg PO DAILY 03/20/18 [History] metFORMIN [Glucophage] 500 mg PO BIDWM 03/20/18 [History] Omeprazole [PriLOSEC] 20 mg PO BIDAC #60 cap 03/21/18 [Rx] Allergies/Adverse Reactions: 3 Allergy/AdvReac Type Severity Reaction Status Date / Time No Known Allergies Allergy Verified 03/20/18 12:56 Date of admission: 03/20/18 19:05 Primary care physician: Alexis Warren MD - Constitutional Vitals: Temp Pulse Resp BP Pulse Ox 97.4 F L 69 15 125/74 94 03/21/18 14:59 03/21/18 14:59 03/21/18 14:59 03/21/18 14:59 03/21/18 14:59 General appearance: Present: A&O X 3, pleasant, no acute distress, obese Exam: GEN: No acute distress, A&O3 HEAD: Atraumatic, normocephalic HEART: RRR, normal S1 and S2, no murmurs LUNGS: Clear to auscultation bilaterally, no wheezes, rhonchi, or crackles ABD: Soft, non tender, non distended, bowel sounds present - Patient Status Disposition: Home, Self-Care Condition: Good Overall status at discharge: patient is back to baseline - Discharge Instructions Follow Up With: Alexis Warren MD [Primary Care Provider] - - Diet and Activity Activity: increase activity as tolerated Diet: advance to your usual diet
--- NOTE | 2018-03-23 17:18 | Electrocardiograph Report ---
[address] [address] Test Date: 2018-03-20 Pat Name: Guero Field Department: [id number] Room: 3A35 Gender: M Installer Soft Top: : 1935 Requested By: Ursula See Order Number: [id number] Reading MD: Sudheer Manrique Measurements Intervals [place] Rate: 69 P: 34 SC: 148 QRS: 21 QRSD: 102 T: 0 QT: 403 QTc: 432 Interpretive Statements Sinus rhythm Electronically Signed On 03-23-2018 17:16:52 EDT by Sudheer Manrique
== END 2018-03-21 18:00 | disposition home or self-care (01) | DRG 378 ==
LOC: 3ANU 12:28 → EMEROOARM 12:28 → 3ANU 16:17
PROVIDERS: ADMIT Internal Medicine; ATTEND Internal Medicine
PROC: ENDOEBX (2018-03-21 13:30)